=== PATIENT | male | born 1950 | race Caucasian/White ===

== ENCOUNTER 2017-04-28 23:02 | Emergency (ER) | payer MEDICARE, MEDICAID ==
[~2017-04-28] VITALS: Ht 177.8 cm; Wt 75.3 kg
--- NOTE | 2017-04-28 23:05 | NUR ---
to bed 1 ambulatory c/o altered mental status s/p glf, with left sided weakness. pt aaox3, no acute distress noted, resp even and unlabored. pupils perrl, pt able to move all extremities with mild weakness on the L side of the body. place pt on cardaic monitoring, continuous pox, o2@2l/nc. er md at bedside to eval pt with orders received.
[2017-04-28] MEDS ORDERED: IV NS 0.9% 500 ML BAG IV ONE (23:30)
[2017-04-28 23:39] LABS: BASOPHILS % (AUTO) 0.4 % (0.0-2.0); EOSINOPHILS # (AUTO) 0.1 /CMM (0.0-0.7); EOSINOPHILS % (AUTO) 1.4 % (0.0-6.0); HEMATOCRIT 40 % (39-51); HEMOGLOBIN 13.2 g/dL (13.5-17.5); LYMPHOCYTES # (AUTO) 2.5 /CMM (0.8-4.8); LYMPHOCYTES % (AUTO) 32.9 % (20.0-44.0); MEAN CORPUSCULAR HEMOGLOBIN 27 PG (26.0-33.0); MEAN CORPUSCULAR HGB CONC 33 g/dl (31.0-36.0); MEAN CORPUSCULAR VOLUME 81 fL (80-96); MONOCYTES # (AUTO) 0.4 /CMM (0.1-1.30); MONOCYTES % (AUTO) 5.6 % (2.0-12.0); NEUTROPHILS # (AUTO) 4.5 /CMM (1.8-8.9); NEUTROPHILS % (AUTO) 59.7 % (43.0-81.0); PLATELET COUNT (AUTO) 266 /CMM (150-450); RDW COEFFICIENT OF VARIATION 15.5 (11.5-15.0); RED BLOOD CELL COUNT(AUTO) 4.93 MIL/uL (4.5-6.0); WHITE BLOOD COUNT (AUTO) 7.5 K/uL (4.3-11.0)
--- NOTE | 2017-04-28 23:46 | NUR ---
pt transported to radiology for ct head.
[2017-04-28 23:50] LABS: CALCIUM, SERUM 9.7 mg/dL (8.5-10.1); CARBON DIOXIDE 32 mmol/L (21-32); CHLORIDE 100 mmol/L (98-107); GLUCOSE 121 mg/dL (74-106); POTASSIUM 4.3 mmol/L (3.5-5.1); SODIUM SERUM 138 mmol/L (136-145); UREA NITROGEN, BLOOD 15 mg/dL (7-18)
[2017-04-28 23:56] LABS: ALANINE AMINOTRANSFERASE 34 U/L (12-78); ALBUMIN 3.4 g/dL (3.4-5.0); ALCOHOL, BLOOD < 3 mg/dL (0-0); ALKALINE PHOSPHATASE 119 U/L (46-116); ASPARTATE AMINOTRANSFERASE 27 U/L (15-37); BILIRUBIN,DIRECT 0.1 mg/dL (0.0-0.2); BILIRUBIN,TOTAL 0.4 mg/dL (0.2-1.0); TOTAL PROTEIN, SERUM 8.2 g/dL (6.4-8.2)
[2017-04-28 23:58] LABS: TROPONIN I < 0.017 ng/mL (0.00-0.056)
[2017-04-29 00:02] LABS: INR 0.95 (0.87-1.13); PROTHROMBIN TIME 10.1 SECS (9.5-12.7)
--- NOTE | 2017-04-29 00:02 | NUR ---
pt back from radiology. pending ct result.
--- NOTE | 2017-04-29 00:54 | NUR ---
pt aaox4 no acute distress noted, resp even and unlabored. call light within reach. awaiting ct result.
[2017-04-29] MEDS ORDERED: LIDOCAINE VISCOUS 2% UD 15 ML UDC MM ONE (02:30)
[2017-04-29] MEDS ORDERED: MAG HYDROX/AL HYDROX/SIMETH 30 ML UDC PO ONE (02:30)
[2017-04-29] MEDS ORDERED: MAG HYDROX/AL HYDROX/SIMETH 30 ML UDC ONE (02:36)
[2017-04-29] MEDS ORDERED: LIDOCAINE VISCOUS 2% UD 15 ML UDC ONE (02:36)
--- NOTE | 2017-04-29 03:35 | NUR ---
pt asleep, no acute disrtess noted, resp even and unlabored. call light within reach. will continue to monitor pt.
[2017-04-29] MEDS ORDERED: IV NS 0.9% 500 ML BAG IV ONE (04:00)
[2017-04-29] MEDS ORDERED: LIDOCAINE 2% JEL UROJET 10 ML MM ONE (04:12)
--- NOTE | 2017-04-29 04:19 | NUR ---
pt still unable to provide urine sample at this time. pt refusing I&O cath. er md alberto aware.
--- NOTE | 2017-04-29 04:34 | NUR ---
I&O cath done. urine sample collected and sent to lab. pt tolerated procedure well.
[2017-04-29 04:44] LABS: APPEARANCE,URINE CLEAR (CLEAR); BILIRUBIN,URINE NEGATIVE (NEGATIVE); BLOOD, URINE NEGATIVE Ery/uL (NEGATIVE); COLOR,URINE YELLOW (YELLOW); KETONES,URINE NEGATIVE (NEGATIVE); LEUKOCYTE ESTERASE ,URINE TRACE (NEGATIVE); NITRITE, URINE NEGATIVE (NEGATIVE); PROTEIN,URINE NEGATIVE (NEGATIVE); UGLUCOSE NEGATIVE (NEGATIVE); UROBILINOGEN,URINE 0.2 EU/dL (0.2)
[2017-04-29 04:53] LABS: BACTERIA,URINE None seen /HPF (None Seen); RBC,URINE NONE SEEN /HPF (0-2); SQUAMOUS EPITHELIAL CELL,UR Rare /HPF (None Seen)
[2017-04-29 04:54] LABS: MUCUS,URINE Rare /LPF (None Seen)
--- NOTE | 2017-04-29 05:16 | NUR ---
pt medically cleared per er md. pending discharge.
--- NOTE | 2017-04-29 05:31 | NUR ---
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
--- NOTE | 2017-04-29 05:52 | NUR ---
pt at bedside, er md at bedside talking to pt .
--- NOTE | 2017-04-29 06:00 | NUR ---
IV removed. Catheter intact and site benign. Pressure and 4x4 applied to site. No bleeding noted. Patient discharged to home in stable condition. Written and verbal after care instructions given. Patient verbalizes understanding of instruction. pt aaox4 no acute distress noted, resp even and unlabored.
[2017-04-29 06:03] VITALS: BP 111/78
== END 2017-04-29 06:03 | disposition home or self-care (01) ==
LOC: ER 23:05
DX: F19.10 Other psychoactive substance abuse, uncomplicated (principal); G89.29 Other chronic pain; I10 Essential (primary) hypertension; I73.9 Peripheral vascular disease, unspecified; J44.9 Chronic obstructive pulmonary disease, unspecified; Z86.73 Personal history of transient ischemic attack (TIA), and cerebral infarction without residual deficits
CPT/HCPCS: 36415; 51701; 70450; 71010; 72125; 80048; 80076; 80305; 81001; 82962; 83605; 84484; 85025; 85730; 87040 ×2; 93005; 99285; A4606; G0480; J3490; J7040 ×4; 81000-TC; Z7610

== ENCOUNTER 2017-08-23 17:51 | Inpatient (IN) | payer MEDICARE, MEDICAID ==
[~2017-08-23] VITALS: Ht 170.2 cm; Wt 67.8 kg
--- NOTE | 2017-08-23 18:10 | NUR ---
PT BIB RA S/P GLF AND HIT HEAD WITH CHIEF COMPLAINT OF GENERALIZED WEAKNESS X1 MONTH. PT DENIES KO. RESP EVEN UNLABORED. SKIN WARM NONDIAPHORETIC. PER PT, NO NEW NEURO DEFICITS GIVEN THE PT'S HX OF CVA. PERRLA. A/OX4, ANSWERING APPROPRIATELY BUT SLOWLY. FOLLOWS COMMANDS. IN ER BED 01.
--- NOTE | 2017-08-23 18:25 | NUR ---
DR HERCULES PAGED [phone]
[2017-08-23 18:58] LABS: BASOPHILS % (AUTO) 0.3 % (0.0-2.0); EOSINOPHILS # (AUTO) 0.1 /CMM (0.0-0.7); EOSINOPHILS % (AUTO) 1.1 % (0.0-6.0); HEMATOCRIT 34 % (39-51); HEMOGLOBIN 11.2 g/dL (13.5-17.5); LYMPHOCYTES # (AUTO) 1.3 /CMM (0.8-4.8); MEAN CORPUSCULAR HEMOGLOBIN 26 PG (26.0-33.0); MEAN CORPUSCULAR HGB CONC 33 g/dl (31.0-36.0); MEAN CORPUSCULAR VOLUME 78 fL (80-96); MONOCYTES # (AUTO) 0.4 /CMM (0.1-1.30); MONOCYTES % (AUTO) 6.4 % (2.0-12.0); NEUTROPHILS # (AUTO) 4.2 /CMM (1.8-8.9); NEUTROPHILS % (AUTO) 70.2 % (43.0-81.0); PLATELET COUNT (AUTO) 342 /CMM (150-450); RDW COEFFICIENT OF VARIATION 14.9 (11.5-15.0); RED BLOOD CELL COUNT(AUTO) 4.31 MIL/uL (4.5-6.0)
--- NOTE | 2017-08-23 18:58 | NUR ---
DR HERCULES PAGED INCORRECTLY
--- NOTE | 2017-08-23 19:19 | NUR ---
RECEIVED REPORT FROM DION LISA FOR FARAZ.
[2017-08-23 19:25] LABS: TROPONIN I < 0.017 ng/mL (0.00-0.056)
[2017-08-23 19:26] LABS: ALANINE AMINOTRANSFERASE 35 U/L (12-78); ALBUMIN 2.8 g/dL (3.4-5.0); ALKALINE PHOSPHATASE 111 U/L (46-116); ASPARTATE AMINOTRANSFERASE 31 U/L (15-37); BILIRUBIN,DIRECT 0.1 mg/dL (0.0-0.2); BILIRUBIN,TOTAL 0.3 mg/dL (0.2-1.0); CALCIUM, SERUM 9.5 mg/dL (8.5-10.1); CARBON DIOXIDE 31 mmol/L (21-32); CHLORIDE 108 mmol/L (98-107); GLUCOSE 123 mg/dL (74-106); POTASSIUM 3.7 mmol/L (3.5-5.1); SODIUM SERUM 144 mmol/L (136-145); TOTAL PROTEIN, SERUM 6.8 g/dL (6.4-8.2); UREA NITROGEN, BLOOD 7 mg/dL (7-18)
[2017-08-23 19:34] LABS: INR 0.99 (0.87-1.13); PROTHROMBIN TIME 10.3 SECS (9.5-12.7)
[2017-08-23 20:53] LABS: APPEARANCE,URINE CLEAR (CLEAR); BILIRUBIN,URINE NEGATIVE (NEGATIVE); BLOOD, URINE NEGATIVE Ery/uL (NEGATIVE); COLOR,URINE YELLOW (YELLOW); KETONES,URINE NEGATIVE (NEGATIVE); LEUKOCYTE ESTERASE ,URINE NEGATIVE (NEGATIVE); NITRITE, URINE NEGATIVE (NEGATIVE); PH,URINE 8.5 (5.0-8.0); PROTEIN,URINE NEGATIVE (NEGATIVE); UGLUCOSE NEGATIVE (NEGATIVE); UROBILINOGEN,URINE 0.2 EU/dL (0.2)
--- NOTE | 2017-08-23 21:13 | NUR ---
JENA LITTLE WAS PAGED FOR PANEL
--- NOTE | 2017-08-23 21:56 | NUR ---
TELE ROOM [id number]
--- NOTE | 2017-08-23 22:25 | NUR ---
REPORT GIVEN TO DION ROBERTSON FOR FARAZ
[2017-08-23 22:30] VITALS: BP 130/67
--- NOTE | 2017-08-23 22:39 | NUR ---
PT TRANSFERRED PER ACLS PROTOCOL.
[2017-08-23 22:40] VITALS: BP 130/67
--- NOTE | 2017-08-23 22:40 | NUR ---
GUIDE DELEGATE NOTES RECEIVED PT FROM ER VIA MANUEL IN STABLE CONDITION. PT IS AWAKE, A/O X 2. VERBALLY RESPONSIVE. NO DISTRESS, NO SOB NOTED AT THIS TIME. ON TELE MONITOR SR 83. DENIES ANY PAIN OR DISCOMFORT AT THIS TIME. IV SITE ON RIGHT HAND G# 22 INTACT AND PATENT. NO S/S OF INFILTRATION NOTED. BODY ASSESSMENT DONE. AWAITING FOR ADMISSION ORDER FROM DR. BELLA. SAFETY PRECAUTIONS OBSERVED. CALL LIGHT WITHIN REACH. WILL CONT TO MONITOR.
[2017-08-23] MEDS ORDERED: ZOLPIDEM TARTRATE 5 MG TABLET PO PRN (23:30)
[2017-08-23] MEDS ORDERED: ONDANSETRON HCL/PF 4 MG/2 ML VIAL IVP PRN (23:30)
[2017-08-23] MEDS: IV NS 0.9% 1,000 ML IV PRN (23:35)
[2017-08-23 23:59] LABS: IRON, SERUM 26 ug/dl (50-175); TOTAL IRON BINDING CAPACITY 373 ug/dl (250-450)
[2017-08-24] VITALS (7 sets, daily range): BP systolic 112–138; BP diastolic 66–96
--- NOTE | 2017-08-24 03:45 | NUR ---
RECEIVED AN ORDER FOR URINE DRUG SCREENING FROM DR. BELLA , NOTED AND CARRIED OUT. URINE COLLECTED AND SENT TO LAB.
[2017-08-24 06:37] LABS: BASOPHILS % (AUTO) 0.2 % (0.0-2.0); EOSINOPHILS # (AUTO) 0.1 /CMM (0.0-0.7); HEMATOCRIT 33 % (39-51); HEMOGLOBIN 10.9 g/dL (13.5-17.5); LYMPHOCYTES # (AUTO) 1.5 /CMM (0.8-4.8); LYMPHOCYTES % (AUTO) 21.2 % (20.0-44.0); MEAN CORPUSCULAR HEMOGLOBIN 26 PG (26.0-33.0); MEAN CORPUSCULAR HGB CONC 33 g/dl (31.0-36.0); MEAN CORPUSCULAR VOLUME 79 fL (80-96); MONOCYTES # (AUTO) 0.4 /CMM (0.1-1.30); MONOCYTES % (AUTO) 5.7 % (2.0-12.0); NEUTROPHILS % (AUTO) 71.9 % (43.0-81.0); PLATELET COUNT (AUTO) 357 /CMM (150-450); RDW COEFFICIENT OF VARIATION 16.1 (11.5-15.0); WHITE BLOOD COUNT (AUTO) 6.9 K/uL (4.3-11.0)
[2017-08-24 06:44] LABS: CREATININE 0.8 mg/dL (0.6-1.3); PHOSPHORUS 3.4 mg/dL (2.5-4.9)
--- NOTE | 2017-08-24 07:00 | NUR ---
RN NOTES: PATIENT RESTING IN BED. PATIENT AOX2. NONLABORED BREATHING NOTED. IV SITE PATENT AND INTACT. BED IN LOWEST LOCKED POSITION. CALL LIGHT WITHIN REACH. WILL CONTINUE TO MONITOR
--- NOTE | 2017-08-24 07:05 | NUR ---
FRONT MAN NOTES PT IS IN BED, RESTING COMFORTABLY AT THIS TIME, AROUSES EASILY. , A/O X 2. VERBALLY RESPONSIVE. NO DISTRESS, NO SOB NOTED AT THIS TIME. ON TELE MONITOR SR 80. DENIES ANY PAIN OR DISCOMFORT AT THIS TIME. IV SITE ON RIGHT HAND G# 22 INTACT AND PATENT. NO S/S OF INFILTRATION NOTED. IVF INFUSING WELL. SAFETY PRECAUTIONS OBSERVED. CALL LIGHT WITHIN REACH. WILL ENDORSE TO NEXT SHIFT FOR FARAZ.
[2017-08-24] MEDS: PANTOPRAZOLE 40 MG TABLET.DR PO SCH (09:08)
[2017-08-24] MEDS ORDERED: ATOR40TA PO (09:09)
[2017-08-24] MEDS ORDERED: MIRT30TA7 PO (09:09)
[2017-08-24] MEDS ORDERED: GABA-534 PO (09:09)
[2017-08-24] MEDS ORDERED: CLON2TAB4 PO (09:09)
[2017-08-24] MEDS ORDERED: PANT40TA4 PO (09:09)
--- NOTE | 2017-08-24 09:12 | NUR ---
RN NOTES: PATIENT JUST TOOK PANTAPRAZOLE. WAS NPO AWAITING FOR DR DAMON'S CONSULT
[2017-08-24 09:26] LABS: THYROID STIMULATING HORMONE 0.113 uIU/mL (0.358-3.74)
[2017-08-24] MEDS: ACETAMINOPHEN 325 MG TABLET PO PRN (15:20)
[2017-08-24] MEDS: SOD FERRIC GLUC 125 MG in IV NS 0.9% 100 ML IV SCH (15:22)
[2017-08-24] MEDS: IV NS 0.9% 1,000 ML IV PRN (16:32)
--- NOTE | 2017-08-24 17:22 | NUR ---
RN NOTES: PATIENT STATES HAVING LOWER BACK PAIN THAT IS ACHING. TYLENOL OFFERED WELL HEAT PACKS. PATIENT DENIES RELIEF. SPOKE TO BRANDI PADILLA NP. HE ORDERED LIDOCAINE PATCH Q 12 HOURS
--- NOTE | 2017-08-24 17:22 | NUR ---
RN NOTES: PATIENT STATES HAVING LOWER BACK PAIN THAT IS ACHING. TYLENOL OFFERED WELL HEAT PACKS. PATIENT DENIES RELIEF. SPOKE TO BRANDI PADILLA NP. HE ORDERED LIDOCAINE PATCH ALTERNATING Q 12 HOURS
[2017-08-24] MEDS: LIDOCAINE 5% (PATCH) 1 EA PATCH TP SCH (18:21)
--- NOTE | 2017-08-24 18:57 | NUR ---
RN NOTES: PATIENT RESTING IN BED. PATIENT AOX2. NONLABORED BREATHING NOTED. IV SITE PATENT AND INTACT. PATIENT STATES FEELING BETTER AFTER PATCH APPLICATION. BED IN LOWEST LOCKED POSITION. CALL LIGHT WITHIN REACH. WILL ENDORSE TO NEXT SHIFT. DURING SHIFT, PATIENT ENCOURAGED TO STAY CLEAN AND DRY. NO SEIZURES NOTED.
--- NOTE | 2017-08-24 19:30 | NUR ---
SMALL LOT OPERATOR OPENING NOTES: PATIENT IN BED, AOX2-3, ON ROOM AIR, BREATHING EVEN AND UNLABORED. APPEARS CALM AND IN NO DISTRESS, BUT DOES STATE THAT HE HAS INTERMITTENT MODERATE PAIN OVER HIS BACK, WHICH HE STATES IS CHRONIC FOR HIM. PIV OVER R HAND G22 INTACT AND PATENT INFUSING WELL WITH NS RUNNING AT 75 ML/HR. PROVIDED FOR COMFORT AND SAFETY. BED IN LOWEST AND LOCKED POSITION, SIDERAILS UPX3. WILL CONT TO MONITOR.
--- NOTE | 2017-08-24 20:16 | NUR ---
RN NOTES: PT ASLEEP AT THIS TIME, UNABLE TO GIVE CLONAZEPAM 0.5 MG PO AT THIS TIME.
[2017-08-24] MEDS: clonazePAM 0.5 MG TABLET PO SCH (21:11)
[2017-08-25] VITALS: BP 117/74
--- NOTE | 2017-08-25 01:20 | NUR ---
RN NOTES: PATIENT HAS HAD 3 WATER BM SINCE [address] BELLA WAS INFORMED, OBTAINED ORDER FOR STOOL FOR C.DIFF. STOOL SAMPLE OBTAINED.
--- NOTE | 2017-08-25 03:48 | NUR ---
RN NOTES: PATIENT GOT UP AND WAS ASSISTED TO BSC FOR ANOTHER BM, THEN WENT BACK TO BED, COMPLAINING OF DULL LOW BACK PAIN, ASKING FOR STRONGER PAIN MEDICATIONS. TYLENOL WAS OFFERED, BUT PATIENT REFUSED AND WENT BACK TO SLEEP. PROVIDED FOR COMFORT.
[2017-08-25 04:00] VITALS: BP 104/75
[2017-08-25 05:00] VITALS: BP_SYST 105; BP_SYST 108; BP_DIAS 74; BP_DIAS 75
--- NOTE | 2017-08-25 05:36 | NUR ---
RN NOTES: PATIENT REFUSED BLOOD DRAW FOR NOW, SAYING THAT IT HURTS, AND THAT HE WANTS A STRONGER PAIN MEDICINE FIRST. RISKS EXPLAINED TO PATIENT, PATIENT STILL REFUSING.
[2017-08-25] MEDS: IV NS 0.9% 1,000 ML IV PRN (06:19)
--- NOTE | 2017-08-25 06:36 | NUR ---
LIMEHOUSE WORKER CLOSING NOTES: PATIENT IN BED, AOX3, ON ROOM AIR, BREATHING EVEN AND UNLABORED, APPEARS CALM AND IN NO DISTRESS. ON TELE MONITORING: SINUS RHYTHM RATE OF 90S. PIV OVER R HAND G22 INTACT AND PATENT, INFUSING WELL WITH NS RUNNING AT 75 ML/HR. PROVIDED FOR COMFORT AND SAFETY. BED IN LOWEST AND LOCKED POSITION, SIDERAILS UPX2, CALL LIGHT WITHIN REACH. SITTER AT BEDSIDE. WILL ENDORSE TO AM RN FOR FARAZ.
[2017-08-25 08:00] VITALS: BP 115/80
--- NOTE | 2017-08-25 08:00 | NUR ---
RN NOTES RECEIVED PATIENT IN THE ROOM A/O X4, TELE HR-89, IV LINE RIGHT HAND NS 75 ML /HR, INTACT, NO RESPIRATORY DISTRESS, PATIENT FOCUSED GOING HOME, PATIENT STATE "I NEED A STRONG PAIN MEDICATION, I WOULD LIKE GO HOME". ENCOURAGED PATIENT TO EXPRESS FEELINGS AND CONCERNS, NO ACUTE DISTRESS, NEEDS ATTENDED AND ANTICIPATED, CALL LIGHT WITHIN TO REACH, PATIENT INCONTINENT / CONTINENT, 1:1 SITTER NEXT TO THE BED FOR SAFETY, CONTINUED MONITORING.
[2017-08-25] MEDS: PANTOPRAZOLE 40 MG TABLET.DR PO SCH (08:29)
[2017-08-25] MEDS: clonazePAM 0.5 MG TABLET PO SCH ×2 (08:29→20:31)
--- NOTE | 2017-08-25 09:02 | NUR ---
RN NOTES DR NICHOLS D/C TELE MONITOR, PATIENT ON MED SURGE AT THIS TIME, HR- 96 , V/S TAKEN STABLE, PATIENT MED COMPLIANT, ASSIST OF TERRITORY SUPERVISOR PATIENT SHAVING, NO ACUTE DISTRESS, NO RESPIRATORY DISTRESS, CALL LIGHT WITHIN TO REACH, SAFETY PRECAUTION MAINTAINED ALL THE TIME.
[2017-08-25] MEDS ORDERED: HYDROCODONE/APAP 10/325MG 1 EA TABLET PO PRN (10:00)
[2017-08-25] MEDS ORDERED: HYDROCODONE/APAP 5/325MG 1 EACH TABLET PO PRN (10:00)
[2017-08-25] MEDS: SOD FERRIC GLUC 125 MG in IV NS 0.9% 100 ML IV SCH (15:43)
--- NOTE | 2017-08-25 15:52 | NUR ---
RN NOTES ADMINISTERED NARCO 10/325 MG PO PRN FOR GENERALIZED PAIN 05/18 PER PATIENT REQUEST, V/S TAKEN BP -116/79, P-89, PER PATIENT HAS A DIARRHEA X5 ALREADY, ENCOURAGED TO INCREASE FLUID INTAKE, MD NOTIFIED. RUNNING IV ON RIGHT HAND NS AT 75 ML/ HR, CALL LIGHT WITHIN TO REACH, BED ALARM ON, SAFETY PRECAUTION MAINTAINED ALL THE TIME.
--- NOTE | 2017-08-25 18:00 | NUR ---
RN NOTES PATIENT IN THE BED HAVING DIARRHEA, ENCOURAGED TO INCREASE FLUID INTAKE, CALLED TRINY EARLY CHILDHOOD EDUCATION SPECIALIST AND GET ORDER BMP, COLLECT STOOL FOR CDIFF, AND CONTINUED IV FLUIDS. ORDER TAKEN, AND CARRIED OUT. MEDICATION WERE ADMINISTERED FOR PAIN EFFECTIVE. 1:1 SITTER NEXT TO THE BED FOR SAFETY, CALL LIGHT WITHIN TO REACH, CONTINUED MONITORING.
--- NOTE | 2017-08-25 19:00 | NUR ---
RN NOTES PATIENT IN THE ROOM, LYING IN THE BED, IV RUNNING ON RIGHT HAND NS AT 75 ML /HR, INTACT, PATIENT MED COMPLIANT, V/S STABLE, NO C/O PAIN AT THIS TIME. CALL LIGHT WITHIN TO REACH, SAFETY PRECAUTION MAINTAINED ALL THE TIME. ENDORSED ONCOMING NURSE FOR CONTINUATION OF CARE.
[2017-08-25] MEDS: LIDOCAINE 5% (PATCH) 1 EA PATCH TP SCH (19:19)
--- NOTE | 2017-08-25 19:30 | NUR ---
MS RN OPENING NOTES: PATIENT IN BED, AOX4, ON ROOM AIR, BREATHING EVEN AND UNLABORED. APPEARS CALM AND IN NO DISTRESS, BUT DOES COMPLAIN OF HEADACHE. PIV OVER R HAND G 22 INTACT AND INFUSING WELL WITH NS RUNNING AT 75 ML/HR. PROVIDED FOR COMFORT AND SAFETY. BED IN LOWEST NAD LOCKED POSITION, SIDERAILS UPX2. WITH SITTER IN ROOM. WILL CONT TO MONITOR.
[2017-08-25 20:00] VITALS: BP 102/74
[2017-08-25] MEDS: ACETAMINOPHEN 325 MG TABLET PO PRN (20:18)
--- NOTE | 2017-08-25 20:22 | NUR ---
RN NOTES: ADMINISTERED TYLENOL 650 MG PO FOR PATIENT'S COMPLAINT OF HEADACHE. ALSO ENCOURAGED SNACKS, HE HAD POOR PO INTAKE REPORTEDLY.
[2017-08-26] MEDS: ACETAMINOPHEN 325 MG TABLET PO PRN (05:23)
--- NOTE | 2017-08-26 05:27 | NUR ---
RN NOTES: PATIENT COMPLAINED OF LOWER BACK PAIN. BP CHECKED AT 98/63, HR: 81. ADMINISTERED TYLENOL 650 MG PO OF THIS TIME.
[2017-08-26 05:28] VITALS: BP 98/63
--- NOTE | 2017-08-26 05:58 | NUR ---
RN NOTES: NOTED PIV OVER R HAND WITH SIGNS OF INFILTRATION, REMOVED PIV AND REINSERTED NEW IV LINE OVER LEFT HAND G24, INTACT AND PATENT TO FLUSH.
[2017-08-26 06:34] LABS: BASOPHILS % (AUTO) 0.3 % (0.0-2.0); EOSINOPHILS # (AUTO) 0.2 /CMM (0.0-0.7); EOSINOPHILS % (AUTO) 1.9 % (0.0-6.0); HEMATOCRIT 36 % (39-51); HEMOGLOBIN 11.6 g/dL (13.5-17.5); LYMPHOCYTES % (AUTO) 24.3 % (20.0-44.0); MEAN CORPUSCULAR HEMOGLOBIN 26 PG (26.0-33.0); MEAN CORPUSCULAR HGB CONC 32 g/dl (31.0-36.0); MEAN CORPUSCULAR VOLUME 79 fL (80-96); MONOCYTES # (AUTO) 0.5 /CMM (0.1-1.30); MONOCYTES % (AUTO) 5.5 % (2.0-12.0); NEUTROPHILS # (AUTO) 5.7 /CMM (1.8-8.9); PLATELET COUNT (AUTO) 424 /CMM (150-450); RDW COEFFICIENT OF VARIATION 16.8 (11.5-15.0); RED BLOOD CELL COUNT(AUTO) 4.55 MIL/uL (4.5-6.0); WHITE BLOOD COUNT (AUTO) 8.4 K/uL (4.3-11.0)
--- NOTE | 2017-08-26 06:40 | NUR ---
MS RN CLOSING NOTES: PATIENT IN BED, AOX3, ON ROOM AIR, BREATHING EVEN AND UNLABORED. APPEARS CALM AND IN NO DISTRESS. PATIENT STILL HAD LOOSE STOOLS X 3 THROUGH NIGHT. PIV OVER L HAND G 24 INTACT AND PATENT TO FLUSH. DUE MEDS GIVEN. PROVIDED FOR COMFORT AND SAFETY. ENCOURAGED PO INTAKE AND FLUIDS. NO ACUTE CHANGE IN CONDITION NOTED THROUGH SHIFT. BED IN LOWEST AND LOCKED POSITION, SIDERAILS UPX2. SITTER AT BEDSIDE. WILL ENDORSE TO AM RN FOR FARAZ.
[2017-08-26 06:43] LABS: CALCIUM, SERUM 9.4 mg/dL (8.5-10.1); CREATININE 0.9 mg/dL (0.6-1.3)
--- NOTE | 2017-08-26 07:46 | NUR ---
MS/RN OPENING NOTE PATIENT RECEIVED IN BED IN STABLE CONDITION. A/O X 3. NO SIGNS OF ACUTE DISTRESS. NO COMPLAIN OF PAIN OR DISCOMFORT. ALL NEEDS ATTENDED TO. CALL LIGHT WITHIN REACH. SITTER AT BEDSIDE. WILL CONTINUE TO MONITOR TO ENSURE SAFETY.
[2017-08-26 08:00] VITALS: BP 120/76
[2017-08-26] MEDS: PANTOPRAZOLE 40 MG TABLET.DR PO SCH (08:01)
[2017-08-26] MEDS: clonazePAM 0.5 MG TABLET PO SCH (09:28)
[2017-08-26] MEDS ORDERED: ASPI81TA2 PO (11:29)
[2017-08-26] MEDS ORDERED: DIPHENOXYLATE HCL/ATROP SULF 1 UDTAB TABLET PO PRN (13:30)
--- NOTE | 2017-08-26 13:34 | NUR ---
MS/RN SPOKE WITH TRINY SPOKE WITH TRINY ROBOTICS SPECIALIST AND MADE AWARE PATIENT NOTED WITH EPISODE OF LOOSE STOOL X 1. NO FOUL ODOR, VITALS STABLE AND PATIENT REQUESTING FOR MEDICATION TO STOP LOOSE STOOL WITH NEW ORDER OF LOMOTIL PRN AND ALSO UPON DISCHARGE TO SEND PATIENT WITH NEW ORDER OF LOMOTIL PRN FOR LOOSE STOOL.
[2017-08-26] MEDS ORDERED: CLON0.5T4 PO (13:57)
[2017-08-26 15:02] VITALS: BP 118/76
--- NOTE | 2017-08-26 15:08 | NUR ---
MS/RN CLOSING NOTE PATIENT DISCHARGE TO [facility] IN STABLE CONDITION. A/O X 3. NO SIGNS OF ACUTE DISTRESS. NO COMPLAIN OF PAIN OR DISCOMFORT. ALL NEEDS ATTENDED TO. DISCHARGE INSTRUCTIONS AND EDUCATION PROVIDED, REINFORCEMENT NEEDED. REPORT GIVEN TO CHANDAN ASHLEY FROM [facility]. IV LINE AND NAME BAND REMOVED. LEFT VIA GURNEY IN STABLE CONDITION ACCOMPANIED BY 2 QUALITY OFFICER.
== END 2017-08-26 15:00 | DRG 56 ==
LOC: ER 17:53 → TELE 22:04 → MED 08-25 09:02
PROVIDERS: ADMIT Internal Medicine; ATTEND Internal Medicine
DX: I69.898 Other sequelae of other cerebrovascular disease (principal); G93.41 Metabolic encephalopathy; E44.0 Moderate protein-calorie malnutrition; I69.854 Hemiplegia and hemiparesis following other cerebrovascular disease affecting left non-dominant side; S09.90XA Unspecified injury of head, initial encounter; D50.9 Iron deficiency anemia, unspecified; F19.10 Other psychoactive substance abuse, uncomplicated; W19.XXXA Unspecified fall, initial encounter; D63.8 Anemia in other chronic diseases classified elsewhere; I69.398 Other sequelae of cerebral infarction; R29.6 Repeated falls; I25.10 Atherosclerotic heart disease of native coronary artery without angina pectoris; E05.90 Thyrotoxicosis, unspecified without thyrotoxic crisis or storm; E55.9 Vitamin D deficiency, unspecified; G89.29 Other chronic pain; I10 Essential (primary) hypertension; J44.9 Chronic obstructive pulmonary disease, unspecified; Z86.711 Personal history of pulmonary embolism; Z68.23 Body mass index [BMI] 23.0-23.9, adult; F41.0 Panic disorder [episodic paroxysmal anxiety]; Y93.9 Activity, unspecified; Y92.009 Unspecified place in unspecified non-institutional (private) residence as the place of occurrence of the external cause
CPT/HCPCS: 36415; 70450-TC; 71010-TC; 80048-TC; 80061-TC; 80076-TC; 80305; 81000-TC; 82272-TC; 82306; 83540-TC; 83605-TC; 83735-TC; 84100-TC; 84439-TC; 84443-TC; 84484-TC; 85025-TC; 85730-TC; 87040-TC; 87081-TC; 87086-TC; 87400; 93307-TC; 93880-TC; 93970-TC; 97112-TC; 97116-TC; 97530-TC; A4606; J2916; J7030; Z7610

== ENCOUNTER 2017-10-10 09:12 | Inpatient (IN) | payer MEDICARE, MEDICAID ==
[~2017-10-10] VITALS: Ht 170.2 cm; Wt 68.0 kg
[~2017-10-10 09:12] MED LIST: ASPI-1169 PO; CLON0.5T4 PO; GABA-534 PO; MIRT30TA7 PO; PANT40TA4 PO
--- NOTE | 2017-10-10 09:14 | NUR ---
[id number] FROM HOME W/ C/O ANXIETY, HEADACHE AND BACK PAIN. PT STS ABOUT 3 HRS AGO, HE STRATED HAVONG CHEST PAINS AND BECAME VERY ANXIOUS. HE CALLED 911 AND WHEN HE SAW THEM HE IMMEDIATELY FELT BETTER BUT STILL ANXIOUS. PT DENIES CP NOW. ASSISTED TO ED BED KEPT WARM AND COMFORTABLE. WILL CONT TO MONITOR
[2017-10-10] MEDS ORDERED: LORAZEPAM 1 MG TABLET ONE (09:30)
[2017-10-10] MEDS ORDERED: LORAZEPAM 1 MG TABLET PO ONE (09:30)
[2017-10-10] MEDS ORDERED: ASPIRIN 325 MG TABLET PO ONE (09:30)
[2017-10-10] MEDS ORDERED: ASPIRIN 325 MG TABLET ONE (09:31)
[2017-10-10 09:46] LABS: BASOPHILS % (AUTO) 0.2 % (0.0-2.0); EOSINOPHILS % (AUTO) 0.5 % (0.0-6.0); HEMATOCRIT 33 % (39-51); LYMPHOCYTES # (AUTO) 1.5 /CMM (0.8-4.8); LYMPHOCYTES % (AUTO) 19.4 % (20.0-44.0); MEAN CORPUSCULAR HEMOGLOBIN 25 PG (26.0-33.0); MEAN CORPUSCULAR HGB CONC 33 g/dl (31.0-36.0); MEAN CORPUSCULAR VOLUME 77 fL (80-96); MONOCYTES # (AUTO) 0.5 /CMM (0.1-1.30); MONOCYTES % (AUTO) 6.9 % (2.0-12.0); NEUTROPHILS # (AUTO) 5.8 /CMM (1.8-8.9); PLATELET COUNT (AUTO) 231 /CMM (150-450); RED BLOOD CELL COUNT(AUTO) 4.34 MIL/uL (4.5-6.0); WHITE BLOOD COUNT (AUTO) 7.8 K/uL (4.3-11.0)
[2017-10-10 09:56] LABS: CALCIUM, SERUM 8.8 mg/dL (8.5-10.1); CARBON DIOXIDE 27 mmol/L (21-32); CHLORIDE 109 mmol/L (98-107); GLUCOSE 107 mg/dL (74-106); POTASSIUM 3.7 mmol/L (3.5-5.1); SODIUM SERUM 141 mmol/L (136-145); UREA NITROGEN, BLOOD 11 mg/dL (7-18)
[2017-10-10 10:05] LABS: TROPONIN I < 0.017 ng/mL (0.00-0.056)
[2017-10-10] MEDS ORDERED: ATOR80TA PO (10:10)
[2017-10-10] MEDS ORDERED: TRAZ-144 PO (10:10)
[2017-10-10] MEDS ORDERED: DABI150C PO (10:10)
[2017-10-10] MEDS ORDERED: CARV6.252 PO (10:10)
[2017-10-10] MEDS ORDERED: PIPERACILLIN /TAZOBACTAM 3.375 G in IV D5W 50 ML IV ONE (11:00)
[2017-10-10 11:17] LABS: INR 0.96 (0.87-1.13)
--- NOTE | 2017-10-10 12:22 | NUR ---
Paged oncology navigator panel Dr. Brenner
--- NOTE | 2017-10-10 13:17 | NUR ---
TELE [id number]
--- NOTE | 2017-10-10 14:03 | NUR ---
REPORT GIVE TO LINETTE. PT AWAITING TRANSFER TO FLOOR.
--- NOTE | 2017-10-10 14:29 | NUR ---
ELECTRICAL CALIBRATORCONTINUING EDUCATION SPECIALIST NOTES RECEIVED PT FROM ER NURSE IN STABLE CONDITION. PT IS A/O X3. NO SOB OR SIGNS OF DISTRESS NOTED. BREATHING IS EVEN AND UNLABORED. VITALS STABLE AT THIS TIME. PT DENIES ANY CHEST PAIN UPON ARRIVAL. DRY COUGH NOTED. PT IS SR ON THE TELE MONITOR WITH A HR OF 82. HE WAS ORIENTED TO THE ROOM. IV NOTED TO BE PATENT AND INTACT. NO REDNESS OR SIGNS OF INFILTRATION NOTED. BED IN LOW LOCKED POSITION, SIDE RAILS UP X2, CALL LIGHT WITHIN REACH. WILL CONTINUE TO MONITOR AND BEGIN ADMISSION PROCESS
[2017-10-10 16:00] VITALS: BP 96/62
[2017-10-10] MEDS ORDERED: MAGNESIUM HYDROXIDE 30 ML UDC PO PRN (18:30)
[2017-10-10] MEDS ORDERED: MAG HYDROX/AL HYDROX/SIMETH 30 ML UDC PO PRN (18:30)
[2017-10-10] MEDS ORDERED: Z GUARD REMEDY 2 OZ OINT TP PRN (18:30)
[2017-10-10] MEDS ORDERED: ONDANSETRON HCL/PF 4 MG/2 ML VIAL IVP PRN (18:30)
[2017-10-10] MEDS ORDERED: ZOLPIDEM TARTRATE 5 MG TABLET PO PRN (18:30)
[2017-10-10] MEDS: HYDROCODONE/APAP 5/325MG 1 EACH TABLET PO PRN (19:30)
--- NOTE | 2017-10-10 19:38 | NUR ---
ELECTRONIC TYPESETTING MACHINE OPERATOR CLOSING NOTES PT REMAINS STABLE SINCE ADMISSION. NO COMPLAINTS OF CHESS PAIN THROUGHOUT SHIFT. ALL NEEDS MET DURING SHIFT AND ORDERS CARRIED OUT ACCORDINGLY. CEFTRIAXONE NOT VERIFIED BY PHARMACY AT THIS TIME. WILL ENDORSE TO NIGHTSHIFT NURSE TO ADMINISTER MEDICATION AND CONTINUE CARE.
[2017-10-10 22:19] VITALS: BP 112/79
[2017-10-10] MEDS: CEFTRIAXONE 1 G in IV D5W 50 ML IV SCH (23:10)
[2017-10-10] MEDS: ATORVASTATIN 40 MG TABLET PO SCH (23:10)
[2017-10-10] MEDS: TRAZODONE 50 MG TABLET PO SCH (23:10)
[2017-10-11] VITALS (8 sets, daily range): BP systolic 101–154; BP diastolic 72–91
--- NOTE | 2017-10-11 00:52 | NUR ---
RN NOTE RECEIVED PT IN NO ACUTE DISTRESS IN BED. PT ON TELE WITH SR ON THE MONITOR. PT ON RA AND TOLERATING WELL. PT HAS LHAND 20G THAT ARE CLEAN DRY AND INTACT. ALL SAFETY MEASURES ENSURED AND CARRIED OUT. TRANSFERRED CARE TO JULIETA RN FOR CONTINUITY OF CARE.
--- NOTE | 2017-10-11 00:55 | NUR ---
MS RN INITIAL NOTES REPORT WAS RECEIVED. PT IS IN BED SLEEPING, EASILY AROUSED/ ANXIOUS. NO SIGNS OF SOB OR DISTRESS. BREATHING EVENLY AND UNLABORED. IV ACCESS INTACT AND INFUSING WITH FLUIDS AT TKO. BED IS IN LOW AND LOCKED POSITION, CALL LIGHT WITHIN REACH. WILL CONTINUE TO MONITOR PT
[2017-10-11] MEDS: ACETAMINOPHEN 325 MG TABLET PO PRN ×2 (00:57→21:51)
--- NOTE | 2017-10-11 01:00 | NUR ---
MS RN NOTES PT O2 IS AT 90%, ATTEMPTED TO APPLY NASAL CANNULA. PT REFUSED, OFFERED MASK BUT PT STILL REFUSED. EDUCATION WAS GIVEN. WILL CONTINUE TO MONITOR PT
--- NOTE | 2017-10-11 06:10 | NUR ---
GENERAL OPERATIONS AGENT CLOSING NOTES PT IS IN BED SLEEPING, EASILY AROUSED. TELE MONITOR SHOWS SR 76. BREATHING EVENLY AND UNLABORED ON RA. PT CONTINUES TO REFUSE NASAL CANNULA. NO SIGNS OF SOB OR DISTRESS. ALL NEEDS WERE ANTICIPATED AND MET. NPO FOR CARDIAC CONSULT. ALL NEEDS WERE ANTICIPATED AND MET. BED IS IN LOW AND LOCKED POSITION, CALL LIGHT WITHIN REACH. WILL ENDORSE TO DAYSHIFT
--- NOTE | 2017-10-11 07:25 | NUR ---
SLURRY WORKER/NOTES RECEIVED PT. IN BED A&OX3. BREATHING UNLABORED ON ROOM AIR. NO S/S OF ACUTE DISTRESS. IV FLUIDS RUNNING. BED IS IN LOWEST AND LOCKED POSITION. 2 SIDE RAILS UP. CALL LIGHT WITHIN REACH. ALL NEEDS MET. WILL CONTINUE TO ASSESS AND MONITOR.
--- NOTE | 2017-10-11 07:30 | NUR ---
RN NOTES PT. GOT OUT OF BED AND PULLED OUT HIS IV. BLEEDING WAS STOPPED.
[2017-10-11 07:32] LABS: BASOPHILS % (AUTO) 0.4 % (0.0-2.0); EOSINOPHILS # (AUTO) 0.2 /CMM (0.0-0.7); EOSINOPHILS % (AUTO) 2.3 % (0.0-6.0); HEMATOCRIT 32 % (39-51); HEMOGLOBIN 10.9 g/dL (13.5-17.5); LYMPHOCYTES % (AUTO) 28.3 % (20.0-44.0); MEAN CORPUSCULAR HEMOGLOBIN 27 PG (26.0-33.0); MEAN CORPUSCULAR HGB CONC 34 g/dl (31.0-36.0); MEAN CORPUSCULAR VOLUME 78 fL (80-96); MONOCYTES # (AUTO) 0.5 /CMM (0.1-1.30); MONOCYTES % (AUTO) 7.9 % (2.0-12.0); NEUTROPHILS # (AUTO) 4.3 /CMM (1.8-8.9); NEUTROPHILS % (AUTO) 61.1 % (43.0-81.0); PLATELET COUNT (AUTO) 231 /CMM (150-450); RED BLOOD CELL COUNT(AUTO) 4.13 MIL/uL (4.5-6.0)
[2017-10-11 07:44] LABS: CALCIUM, SERUM 8.6 mg/dL (8.5-10.1); CREATININE 0.9 mg/dL (0.6-1.3); MAGNESIUM 1.6 mg/dL (1.8-2.4); PHOSPHORUS 3.7 mg/dL (2.5-4.9); POTASSIUM 3.4 mmol/L (3.5-5.1)
--- NOTE | 2017-10-11 08:00 | NUR ---
RN NOTES PT. HAD AN EPISODE OF DIARRHEA.
[2017-10-11] MEDS: CARVEDILOL 6.25 MG TABLET PO SCH ×2 (10:08→16:53)
[2017-10-11] MEDS: GABAPENTIN 300 MG CAPSULE PO SCH ×2 (10:09→16:52)
[2017-10-11] MEDS: PANTOPRAZOLE 40 MG TABLET.DR PO SCH (10:09)
[2017-10-11] MEDS: DABIGATRAN ETEXILATE MESYLATE 150 MG CAPSULE PO SCH (10:11)
[2017-10-11] MEDS ORDERED: POTASSIUM CHLORIDE 20 MEQ TAB.PRT.SR PO SCH (11:30)
[2017-10-11] MEDS ORDERED: Magnesium 1GM/D5W 100ML PREMIX 100 ML IV SCH (11:40)
[2017-10-11] MEDS: Magnesium 1GM/D5W 100ML PREMIX 100 ML IV SCH ×4 (12:00→18:04)
[2017-10-11] MEDS ORDERED: POTASSIUM CHLORIDE 20 MEQ TAB.PRT.SR PO ONE (12:00)
--- NOTE | 2017-10-11 12:00 | NUR ---
RN NOTES PT. HAD AN EPISODE OF DIARRHEA.
--- NOTE | 2017-10-11 12:00 | NUR ---
RN NOTES PT. HAD IV REMOVED WILL RESTART NEW IV TO ADMINISTER MEDICATION.
--- NOTE | 2017-10-11 13:00 | NUR ---
RN NOTES PT. HAS NO IV ACCESS WILL RESTART NEW IV TO ADMINISTER MEDICATION. CALLED PHARMACY TO NOTIFY MEDICATION COULD NOT BE ADMINISTERED WITHOUT IV ACCESS, WILL NOTIFY PHARMACY WHEN NEW IV WILL BE RESTARTED TO CONTINUE MEDICATIONS. PER PHARMACY MEDICATIONS WILL BE RESCHEDULED FOR A LATER TIME.
[2017-10-11] MEDS: HYDROCODONE/APAP 5/325MG 1 EACH TABLET PO PRN (16:22)
--- NOTE | 2017-10-11 18:30 | NUR ---
RN NOTE PT. HAD AN EPISODE OF DIARRHEA.
--- NOTE | 2017-10-11 19:35 | NUR ---
MS RN OPENING NOTES RECEIVED PT WATCHING TV IN BED. A & O X 3. RESP EVEN & UNLABORED ON ROOM AIR. NO S/S OF ACUTE DISTRESS. NO C/O PAIN NOTED. IV ACCESS TO RFA, INTACT PATENT. BED IS IN LOWEST AND LOCKED POSITION. 2 SIDE RAILS UP. CALL LIGHT WITHIN REACH. ALL NEEDS MET. WILL CONTINUE TO ASSESS AND MONITOR
[2017-10-11] MEDS ORDERED: AZITHROMYCIN 250 MG TABLET PO SCH (20:00)
[2017-10-11] MEDS: CEFTRIAXONE 1 G in IV D5W 50 ML IV SCH (20:18)
[2017-10-11] MEDS: ATORVASTATIN 40 MG TABLET PO SCH (21:51)
[2017-10-11] MEDS: TRAZODONE 50 MG TABLET PO SCH (21:51)
--- NOTE | 2017-10-11 21:51 | NUR ---
PRN TYLENOL GIVEN PATIENT C/O HEADACHE & ASKED TO TAKE TYLENOL. PRN TYLENOL GIVEN. WILL MONITOR CLOSELY FOR EFFECTIVENESS.
--- NOTE | 2017-10-11 21:57 | NUR ---
TEACHER ADVISOR/NOTES PT. IN BED A&OX3. BREATHING UNLABORED ON ROOM AIR. NO S/S OF ACUTE DISTRESS. IV FLUIDS RUNNING. BED IS IN LOWEST AND LOCKED POSITION. 2 SIDE RAILS UP. CALL LIGHT WITHIN REACH. ALL NEEDS MET. WILL ENDORSE REPORT TO NURSE.
--- NOTE | 2017-10-12 03:19 | NUR ---
NEW ORDER MD ORDERED TROPONIN I IN AM, CHARGE NURSE AWARE. NOTED & CARRIED OUT. PT IN STABLE CONDITION & SLEEPING COMFORTABLY.
[2017-10-12] MEDS: ACETAMINOPHEN 325 MG TABLET PO PRN ×2 (04:09→14:33)
--- NOTE | 2017-10-12 04:09 | NUR ---
PRN TYLENOL GIVEN PATIENT ASKED FOR PAIN MEDICINE FOR HEADACHE. PRN TYLENOL GIVEN. WILL REASSESS FOR EFFECTIVENESS.
--- NOTE | 2017-10-12 06:40 | NUR ---
MS RN CLOSING NOTES PATIENT SLEPT INTERMITTENTLY. A & O X 3. RESP EVEN & UNLABORED ON ROOM AIR. NO S/S OF ACUTE DISTRESS. C/O HEADACHE NOTED, PRN TYLENOL GIVEN & WAS EFFECTIVE. IV ACCESS TO RFA, INTACT PATENT. BED IS IN LOWEST AND LOCKED POSITION. ALL NEEDS MET. 2 SIDE RAILS UP. CALL LIGHT WITHIN REACH. WILL ENDORSE TO AM RN FOR CONTINUITY OF CARE.
--- NOTE | 2017-10-12 07:25 | NUR ---
ms rn initial notes Received patient in bed, awake, head of bed elevated, no SOB noted, on room air. Noted patient having anxiety and per patient he is taking Klonopin 2 mg for anxiety, will contact MD. IV intact and patent HL: only. Alert and oriented x 3, verbally responsive and able to make needs known. Kept patient clean and comfortable in bed, call light with in patient reach. will continue to monitor accordingly.
[2017-10-12] MEDS: PANTOPRAZOLE 40 MG TABLET.DR PO SCH (07:30)
[2017-10-12 07:54] LABS: BASOPHILS % (AUTO) 0.1 % (0.0-2.0); EOSINOPHILS # (AUTO) 0.1 /CMM (0.0-0.7); HEMATOCRIT 34 % (39-51); HEMOGLOBIN 11.2 g/dL (13.5-17.5); LYMPHOCYTES # (AUTO) 1.8 /CMM (0.8-4.8); LYMPHOCYTES % (AUTO) 24.5 % (20.0-44.0); MEAN CORPUSCULAR HEMOGLOBIN 26 PG (26.0-33.0); MEAN CORPUSCULAR HGB CONC 33 g/dl (31.0-36.0); MEAN CORPUSCULAR VOLUME 77 fL (80-96); MONOCYTES # (AUTO) 0.7 /CMM (0.1-1.30); MONOCYTES % (AUTO) 8.9 % (2.0-12.0); NEUTROPHILS # (AUTO) 4.9 /CMM (1.8-8.9); NEUTROPHILS % (AUTO) 64.5 % (43.0-81.0); PLATELET COUNT (AUTO) 272 /CMM (150-450); RDW COEFFICIENT OF VARIATION 16.3 (11.5-15.0); RED BLOOD CELL COUNT(AUTO) 4.38 MIL/uL (4.5-6.0); WHITE BLOOD COUNT (AUTO) 7.5 K/uL (4.3-11.0)
[2017-10-12 08:00] VITALS: BP_SYST 136; BP_SYST 157; BP_DIAS 78; BP_DIAS 89
[2017-10-12 08:53] LABS: CALCIUM, SERUM 8.7 mg/dL (8.5-10.1); CREATININE 0.9 mg/dL (0.6-1.3); MAGNESIUM 1.9 mg/dL (1.8-2.4); POTASSIUM 3.6 mmol/L (3.5-5.1)
[2017-10-12] MEDS ORDERED: LEVO500T75 PO (08:56)
[2017-10-12] MEDS: GABAPENTIN 300 MG CAPSULE PO SCH ×2 (09:29→16:24)
[2017-10-12] MEDS: CARVEDILOL 6.25 MG TABLET PO SCH ×2 (09:29→16:24)
[2017-10-12] MEDS: DABIGATRAN ETEXILATE MESYLATE 150 MG CAPSULE PO SCH (09:35)
[2017-10-12] MEDS: LORAZEPAM INJ 2 MG/ML VIAL IV PRN ×2 (09:36→15:29)
[2017-10-12] MEDS: HYDROCODONE/APAP 5/325MG 1 EACH TABLET PO PRN ×2 (11:40→16:26)
[2017-10-12 16:00] VITALS: BP 148/88
[2017-10-12 16:24] VITALS: BP 138/88
--- NOTE | 2017-10-12 17:45 | NUR ---
ms rn document improvement notes Discharge instructions given to patient and able to understand instructions. Signed discharge paper and belongings list and no items missing. Discontinued IV site and pressured applied to prevent bleeding. Flu and pneumonia vaccine offered and patient refused vaccinations. Vital signs checked and recorded. Patient picked up by ambulance via gurney accompanied by 2 EMT's left in stable condition, no SOB or distress noted, no complaint of pain or discomfort noted, nor chest pain. Pictures taken and filed in the chart. MD and charge nurse aware.
== END 2017-10-12 18:05 | DRG 194 ==
LOC: ER 09:14 → TELE 13:30 → MED 10-11 18:04
PROVIDERS: ADMIT Family Medicine; ATTEND Family Medicine
DX: J15.9 Unspecified bacterial pneumonia (principal); J44.0 Chronic obstructive pulmonary disease with (acute) lower respiratory infection; E83.42 Hypomagnesemia; J98.11 Atelectasis; I10 Essential (primary) hypertension; I25.10 Atherosclerotic heart disease of native coronary artery without angina pectoris; Z79.01 Long term (current) use of anticoagulants; Z79.899 Other long term (current) drug therapy; Z86.711 Personal history of pulmonary embolism; Z86.73 Personal history of transient ischemic attack (TIA), and cerebral infarction without residual deficits; Z96.649 Presence of unspecified artificial hip joint; R73.9 Hyperglycemia, unspecified; F41.9 Anxiety disorder, unspecified; R07.81 Pleurodynia
CPT/HCPCS: 36415; 71045-TC; 80048-TC; 80061-TC; 83605-TC; 83735-TC; 84100-TC; 84484-TC; 85025-TC; 85730-TC; 87040-TC; 87081-TC; J0696; J2060; J2543; J3475; J7050; J7060